=== PATIENT | male | born 1980 | race Caucasian/White ===

== ENCOUNTER 2022-07-09 11:55 | Emergency (ER) | payer SELFPAY ==
[2022-07-09] MEDS ORDERED: Ondansetron 4 MG/2 ML SDV IVPUSH ONE (12:18)
[2022-07-09] MEDS ORDERED: Sodium Chloride 0.9% 1,000 ML IV STA (12:18)
[2022-07-09] MEDS: Sodium Chloride 0.9% 10 ML Syringe FLUSH PRN ×2 (12:31→15:08)
[2022-07-09 12:48] LABS: ESTIMATED GFR 98 mL/min (>60)
[2022-07-09] MEDS ORDERED: Tamsulosin 0.4 MG Cap.ER PO ONE (14:43)
[2022-07-09] MEDS ORDERED: Ketorolac 30 MG/ML SDV IVPUSH ONE (14:43)
== END 2022-07-09 15:15 | disposition home or self-care (01) ==
LOC: JD.ED 11:55
DX: N13.2 Hydronephrosis with renal and ureteral calculous obstruction (principal)
CPT/HCPCS: 36415; 74176; 80053; 81001; 85025; 86140; 96361; 96374; 96375; 99284; A9270; J1885; J2405; J3490; J7030